=== PATIENT | male | born 1945 | race Hispanic/Latino ===

== ENCOUNTER 2022-10-30 09:51 | Outpatient (CLI) | payer MEDICARE | END 2022-10-30 09:52 | disposition home or self-care (01) | LOC: CSHWCC 09:51 | PROVIDERS: ATTEND Nurse Practitioner Family | DX: S51.801D Unspecified open wound of right forearm, subsequent encounter (principal); S51.802D Unspecified open wound of left forearm, subsequent encounter | CPT/HCPCS: 11042; 11045; 97139; G0463; 99203 ==

== ENCOUNTER 2022-11-02 08:17 | Outpatient (CLI) | payer MEDICARE | END 2022-11-02 08:18 | disposition home or self-care (01) | LOC: CSHWCC 08:17 | PROVIDERS: ATTEND Nurse Practitioner Family | DX: S51.801D Unspecified open wound of right forearm, subsequent encounter (principal); S51.802D Unspecified open wound of left forearm, subsequent encounter | CPT/HCPCS: 97139; G0463; 99211 ==

== ENCOUNTER 2022-11-07 13:07 | Outpatient (CLI) | payer MEDICARE | END 2022-11-07 13:08 | disposition home or self-care (01) | LOC: CSHWCC 13:07 | PROVIDERS: ATTEND Nurse Practitioner Family | DX: S51.801D Unspecified open wound of right forearm, subsequent encounter (principal); S51.802D Unspecified open wound of left forearm, subsequent encounter | CPT/HCPCS: 97139; G0463; 99212 ==